=== PATIENT | female | born 2005 | race Caucasian/White ===

== ENCOUNTER 2024-03-01 13:37 | Emergency (ER) | payer SELFPAY ==
[~2024-03-01] VITALS: Ht 167.6 cm; Wt 90.7 kg
[2024-03-01 14:32] VITALS: BP 122/63
[2024-03-01] MEDS ORDERED: Venlafaxine HCl 75 MG CapCR PO ONE (14:40)
[2024-03-02] MEDS ORDERED: ALDACTONE100 MG PO (16:31)
[2024-03-02] MEDS ORDERED: Estradiol2 MG PO (16:32)
[2024-03-02] MEDS ORDERED: VENL150ER PO (16:32)
== END 2024-03-01 14:44 | disposition home or self-care (01) ==
LOC: ER 13:37
DX: Z76.0 Encounter for issue of repeat prescription (principal)
CPT/HCPCS: A9270

== ENCOUNTER → 2024-06-21 | Outpatient (CLI) | payer OTHER ==
[~2024-06-21] MED LIST: ALDACTONE100 MG PO; Estradiol2 MG PO; VENL150ER PO
[2024-06-21 19:26] LABS: Chlamydia Trachomatis Urine NOT DETECTED (NOT DETECT); Neisseria Gonorrhoea Urine NOT DETECTED (NOT DETECT)
== END ==
LOC: LAB SHORT 16:39 → LAB 16:39
DX: R30.0 Dysuria (principal)
CPT/HCPCS: 87491; 87591